=== PATIENT | female | born 1970 | race Two or more races ===

== ENCOUNTER 2022-10-28 09:20 | Outpatient (REF) | payer MEDICAID, SELFPAY ==
--- NOTE | ~2022-10-28 | MM_ITS ---
EXAMINATION: MM SCREENING DIGITAL BREAST TOMOSYNTHESIS, BILATERAL CLINICAL INFORMATION: Screening. Asymptomatic. Prior outside mammography from [place] currently unavailable. The lifetime risk of breast cancer based on the Tyrer-Cuzick Model is 11%. COMPARISON: None. TECHNIQUE: Digital breast tomosynthesis is performed in both the craniocaudal and mediolateral oblique views along with computer-aided detection (CAD). Synthesized 2D images are generated from the tomosynthesis. Additional bilateral MLO views are provided. FINDINGS: The breasts are almost entirely fatty (ACR BI-RADS breast composition Category a). There are no significant masses, abnormal calcifications, or other abnormalities. No architectural abnormality. There are scattered benign bilateral round and rim calcifications. The axilla and skin contours are unremarkable. MM/MM tomosynthesis screening BI IMPRESSION: No mammographic evidence of malignancy. ASSESSMENT: BI-RADS 1: Negative RECOMMENDATION: Routine annual mammography screening. This patient's information was entered into a reminder system with a target due date for their next mammogram.
== END 2022-10-28 09:21 | disposition home or self-care (01) ==
LOC: HO.MAMMO 09:20
PROVIDERS: Visit Provider General Practice
DX: Z12.31 Encounter for screening mammogram for malignant neoplasm of breast (principal)
CPT/HCPCS: 77063; 77067

== ENCOUNTER 2023-07-03 10:50 | Outpatient (REF) | payer MEDICAID, SELFPAY ==
[2023-07-03 13:14] LABS: MANUAL DIFF FLAG NO
[2023-07-03 13:18] LABS: Appearance Urine Cloudy; Color Urine Yellow; Glucose Urine UA Negative (Negative); Leukocyte Esterase Urine Small (1+) (Negative); Nitrite Urine Positive (Negative); PH 7.5 (5.0-9.0); Specific Gravity - Urine 1.015 (1.005-1.025); UMIC TRIGGER UA YES; Urine Blood Negative (Negative); Urine Ketones Negative (Negative); Urine Protein Negative (Neg-Trace)
[2023-07-03 13:25] LABS: Bacteria Urine 4+ (None Seen); Hyaline Casts Urine 0-2 /LPF (0-2)
[2023-07-03 13:31] LABS: Basophils Percent Auto 0.7 % (0-2); Eosinophils Absolute Auto 0.1 X10*3/uL (0.0-0.4); Eosinophils Percent Auto 1.1 % (0-4); Hematocrit 37.3 % (37.0-47.0); Hemoglobin 12.5 g/dl (12.0-16.0); Imm Gran Abs Auto 0.02 X10*3/uL (0.00-0.03); Imm Gran Pct Auto 0.3 % (0.0-0.4); Lymphocytes Absolute Auto 2.1 X10*3/uL (1.2-4.9); Lymphocytes Percent Auto 34.5 % (20-40); Mean Corpuscular HGB Conc 33.5 g/dl (31.0-35.0); Mean Corpuscular Hemoglobin 32.3 pg (27.0-33.0); Mean Corpuscular Volume 96.4 fL (80.0-98.0); Mean Platelet Volume 9.8 fL (9.4-12.3); Monocytes Absolute Auto 0.5 X10*3/uL (0.1-1.2); Monocytes Percent Auto 8.1 % (2-11); Neutrophils Absolute Auto 3.4 x10*3/uL (2.0-8.3); Neutrophils Percent Auto 55.3 % (45-73); Platelet Count 259 X10*3/uL (160-400); Red Blood Count 3.87 X10*6/uL (4.20-5.50); Red Cell Distribution Width 13.1 % (11.0-16.0); White Blood Count 6.1 X10*3/uL (4.8-10.8)
[2023-07-03 14:55] LABS: Alanine Aminotransferase 26 U/L (0-31); Albumin Level 4.2 g/dL (3.5-5.0); Alkaline Phosphatase 63 U/L (39-117); Anion Gap 16 (12-20); Aspartate Amino Transferase 27 U/L (5-31); Bilirubin Total 0.6 mg/dL (0.0-1.0); Blood Urea Nitrogen 7 mg/dL (9-16); Calcium 9.4 mg/dL (8.4-10.2); Carbon Dioxide 24 mmol/L (22-29); Chloride 104 mmol/L (96-108); Cholesterol 149 mg/dL; Estimated Glomerular Filt Rate > 60; Glucose Random 124 mg/dL (60-115); HDL Cholesterol 39 mg/dL; LDL Cholesterol Calculated 62 mg/dl; Potassium 3.3 mmol/L (3.3-5.1); Sodium 141 mmol/L (135-145); Total Protein 7.7 g/dL (6.5-8.0); Triglycerides 244 mg/dL
[2023-07-04 04:05] LABS: Syphilis Screen Nonreactive (Nonreactive)
[2023-07-06 10:29] LABS: Absolute CD3 Count 1572 cells/uL (840-3060); Absolute CD4 Count 869 cells/uL (490-1740); Absolute CD8 Count 840 cells/uL (180-1170); Absolute Lymphocytes 2119 cells/uL (850-3900); CD4 CD8 Ratio 1.04 (0.86-5.00); Percent CD3 Cells 74 % (57-85); Percent CD4 Cells 41 % (30-61); Percent CD8 Cells 40 % (12-42)
[2023-07-06 16:19] LABS: TS Negative Control Passed; TS Panel A 2; TS Panel B 0; TS Positive Control Passed; TSpotTB Negative (Negative)
[2023-07-07 20:13] LABS: HIV RNA PCR Qn Copies 117 copies/mL (NOT DETECTED); HIV RNA PCR Qn Log Copies 2.07 (NOT DETECTED)
== END 2023-07-03 10:51 | disposition home or self-care (01) ==
LOC: HO.HHCL 10:50
PROVIDERS: Visit Provider Internal Medicine
DX: B20 Human immunodeficiency virus [HIV] disease (principal)
CPT/HCPCS: 36415; 80053; 80061; 81001; 85025; 86359; 86360; 86481; 86780; 87536

== ENCOUNTER 2023-08-17 16:31 | Outpatient (REF) | payer MEDICAID, SELFPAY | END 2023-08-17 16:32 | disposition home or self-care (01) | LOC: HO.HHCLNP 16:31 | PROVIDERS: Visit Provider General Practice | DX: F41.9 Anxiety disorder, unspecified (principal) | CPT/HCPCS: 80307 ==

== ENCOUNTER 2023-10-01 17:42 | Outpatient (REF) | payer MEDICAID, SELFPAY ==
[2023-10-05 12:47] LABS: Fentanyl, Ur NEGATIVE; Norfentanyl, Ur NEGATIVE
[2023-10-06 08:58] LABS: Aminoclonazepam, GCMS Urine 119 (H)
[2023-10-06 09:02] LABS: Codeine, Ur NEGATIVE; Hydrocodone, Ur NEGATIVE; Hydromorphone, Ur NEGATIVE; Morphine, Ur NEGATIVE
[2023-10-06 09:03] LABS: Alphahydroxymidazolam,GCMS Ur NEGATIVE; Alphahydroxytriazolam, GCMS Ur NEGATIVE; Alprazolam, GCMS Urine NEGATIVE; Flurazepam Metabolite,GCMS Ur NEGATIVE; Lorazepam GCMS Urine NEGATIVE; Nordiazepam, GCMS Urine NEGATIVE; Norhydrocodone, Ur NEGATIVE; Oxazepam, GCMS Urine NEGATIVE; Oxymorphone, Ur NEGATIVE; Temazepam, GCMS Urine NEGATIVE
== END 2023-10-01 17:43 | disposition home or self-care (01) ==
LOC: HO.HHCLNP 17:42
PROVIDERS: Visit Provider General Practice
DX: R10.9 Unspecified abdominal pain (principal); G89.29 Other chronic pain
CPT/HCPCS: 80346; 80354; 80365; G0480

== ENCOUNTER 2023-10-09 12:29 | Outpatient (REF) | payer MEDICAID, SELFPAY ==
[2023-10-14 09:03] LABS: HIV RNA PCR Qn Copies NOT DETECTED copies/mL (NOT DETECTED); HIV RNA PCR Qn Log Copies NOT DETECTED (NOT DETECTED)
[2023-10-18 12:38] LABS: HIV 1 Integrase Proviral DNA DETECTED; HIV 1 PR RT Proviral DNA DETECTED
== END 2023-10-09 12:30 | disposition home or self-care (01) ==
LOC: HO.HHCL 12:29
PROVIDERS: Visit Provider Internal Medicine
DX: B20 Human immunodeficiency virus [HIV] disease (principal)
CPT/HCPCS: 36415; 87536; 87900; 87901; 87906

== ENCOUNTER 2024-02-02 11:44 | Outpatient (REF) | payer MEDICAID, SELFPAY ==
[2024-02-09 11:01] LABS: Alphahydroxymidazolam,GCMS Ur NEGATIVE; Alphahydroxytriazolam, GCMS Ur NEGATIVE; Alprazolam, GCMS Urine NEGATIVE; Flurazepam Metabolite,GCMS Ur NEGATIVE; Lorazepam GCMS Urine NEGATIVE; Nordiazepam, GCMS Urine NEGATIVE; Oxazepam, GCMS Urine NEGATIVE; Temazepam, GCMS Urine NEGATIVE
[2024-02-09 11:03] LABS: Fentanyl, Ur NEGATIVE; Norfentanyl, Ur NEGATIVE
== END 2024-02-02 11:45 | disposition home or self-care (01) ==
LOC: HO.LNP 11:44
PROVIDERS: Visit Provider General Practice
DX: R10.9 Unspecified abdominal pain (principal); G89.29 Other chronic pain
CPT/HCPCS: 80346; 80354

== ENCOUNTER 2024-02-04 11:21 | Outpatient (REF) | payer MEDICAID, SELFPAY | END 2024-02-04 11:22 | disposition home or self-care (01) | LOC: HO.SH 11:21 | PROVIDERS: Visit Provider General Practice | DX: Z01.118 Encounter for examination of ears and hearing with other abnormal findings (principal); H90.3 Sensorineural hearing loss, bilateral | CPT/HCPCS: 92557; 92567 ==

== ENCOUNTER 2024-03-30 16:48 | Outpatient (REF) | payer MEDICAID, SELFPAY ==
[2024-04-04 08:18] LABS: Fentanyl, Ur NEGATIVE; Norfentanyl, Ur NEGATIVE
[2024-04-04 08:20] LABS: Alphahydroxymidazolam,GCMS Ur NEGATIVE; Alphahydroxytriazolam, GCMS Ur NEGATIVE; Alprazolam, GCMS Urine NEGATIVE; Lorazepam GCMS Urine NEGATIVE; Nordiazepam, GCMS Urine NEGATIVE; Oxazepam, GCMS Urine NEGATIVE; Temazepam, GCMS Urine NEGATIVE
[2024-04-04 08:21] LABS: Flurazepam Metabolite,GCMS Ur NEGATIVE
== END 2024-03-30 16:49 | disposition home or self-care (01) ==
LOC: HO.HHCLNP 16:48
PROVIDERS: Visit Provider General Practice
DX: R10.9 Unspecified abdominal pain (principal); G89.29 Other chronic pain
CPT/HCPCS: 80346; 80354

== ENCOUNTER 2024-05-26 16:45 | Outpatient (REF) | payer MEDICAID, SELFPAY | END 2024-05-26 16:46 | disposition home or self-care (01) | LOC: HO.HHCLNP 16:45 | PROVIDERS: Visit Provider General Practice | DX: R10.9 Unspecified abdominal pain (principal); G89.29 Other chronic pain | CPT/HCPCS: 36415; 80307 ==

== ENCOUNTER 2024-06-16 10:07 | Outpatient (REF) | payer MEDICAID, SELFPAY ==
[2024-06-16 11:20] LABS: MANUAL DIFF FLAG NO
[2024-06-16 11:25] LABS: Appearance Urine Cloudy; Color Urine Yellow; Glucose Urine UA Negative (Negative); Leukocyte Esterase Urine Moderate (2+) (Negative); Nitrite Urine Positive (Negative); Specific Gravity - Urine 1.015 (1.005-1.025); UMIC TRIGGER UACC YES; Urine Blood Negative (Negative); Urine Ketones Negative (Negative); Urine Protein Negative (Neg-Trace)
[2024-06-16 11:30] LABS: Basophils Percent Auto 0.8 % (0-2); Eosinophils Absolute Auto 0.2 X10*3/uL (0.0-0.4); Eosinophils Percent Auto 3.2 % (0-4); Hematocrit 35.4 % (37.0-47.0); Hemoglobin 12.1 g/dl (12.0-16.0); Imm Gran Abs Auto 0.02 X10*3/uL (0.00-0.03); Imm Gran Pct Auto 0.4 % (0.0-0.4); Lymphocytes Absolute Auto 1.9 X10*3/uL (1.2-4.9); Lymphocytes Percent Auto 35.7 % (20-40); Mean Corpuscular HGB Conc 34.2 g/dl (31.0-35.0); Mean Corpuscular Hemoglobin 32.7 pg (27.0-33.0); Mean Corpuscular Volume 95.7 fL (80.0-98.0); Monocytes Absolute Auto 0.5 X10*3/uL (0.1-1.2); Monocytes Percent Auto 9.3 % (2-11); Neutrophils Absolute Auto 2.7 x10*3/uL (2.0-8.3); Neutrophils Percent Auto 50.6 % (45-73); Platelet Count 281 X10*3/uL (160-400); Red Cell Distribution Width 12.9 % (11.0-16.0); White Blood Count 5.3 X10*3/uL (4.8-10.8)
[2024-06-16 11:38] LABS: Bacteria Urine 4+ (None Seen); Hyaline Casts Urine 0-2 /LPF (0-2); RBC Urine 0-2 /HPF (0-2); UACC Culture Trigger YES
[2024-06-16 12:00] LABS: Alanine Aminotransferase 21 U/L (0-31); Albumin Level 4.2 g/dL (3.5-5.0); Alkaline Phosphatase 62 U/L (39-117); Anion Gap 16 (12-20); Aspartate Amino Transferase 32 U/L (5-31); Bilirubin Total 0.4 mg/dL (0.0-1.0); Blood Urea Nitrogen 7 mg/dL (9-16); Calcium 9.3 mg/dL (8.4-10.2); Carbon Dioxide 24 mmol/L (22-29); Chloride 105 mmol/L (96-108); Cholesterol 159 mg/dL (<200); Estimated Glomerular Filt Rate > 60; Glucose Random 120 mg/dL (60-115); HDL Cholesterol 35 mg/dL (>40); LDL Cholesterol Calculated 66 mg/dL (<100); Potassium 3.3 mmol/L (3.3-5.1); Sodium 142 mmol/L (135-145); Triglycerides 290 mg/dL (<150)
[2024-06-16 12:08] LABS: Reflex LDLD? No
[2024-06-16 12:21] LABS: Syphilis Screen Nonreactive (Nonreactive); ~HepC Num1 0.22 S/CO (0.00-0.79); ~Hepatitis C Antibody Nonreactive (Nonreactive)
[2024-06-19 03:04] LABS: TS Negative Control Passed; TS Panel A 0; TS Panel B 0; TS Positive Control Passed; TSpotTB Negative (Negative)
[2024-06-20 13:38] LABS: HIV RNA PCR Qn Copies 26 copies/mL (NOT DETECTED); HIV RNA PCR Qn Log Copies 1.41 (NOT DETECTED)
[2024-06-20 19:47] LABS: Absolute CD3 Count 1522 cells/uL (840-3060); Absolute CD4 Count 902 cells/uL (490-1740); Absolute CD8 Count 726 cells/uL (180-1170); Absolute Lymphocytes 1911 cells/uL (850-3900); CD4 CD8 Ratio 1.24 (0.86-5.00); Percent CD3 Cells 80 % (57-85); Percent CD4 Cells 47 % (30-61); Percent CD8 Cells 38 % (12-42)
== END 2024-06-16 10:08 | disposition home or self-care (01) ==
LOC: HO.HHCL 10:07
PROVIDERS: Visit Provider Internal Medicine
DX: B20 Human immunodeficiency virus [HIV] disease (principal)
CPT/HCPCS: 36415; 80053; 80061; 81001; 85025; 86359; 86360; 86481; 86780; 86803; 87086; 87088; 87186; 87536

== ENCOUNTER 2024-07-20 17:15 | Outpatient (REF) | payer MEDICAID, SELFPAY ==
[2024-07-25 11:08] LABS: Fentanyl, Ur NEGATIVE; Norfentanyl, Ur NEGATIVE
== END 2024-07-20 17:16 | disposition home or self-care (01) ==
LOC: HO.HHCLNP 17:15
PROVIDERS: Visit Provider General Practice
DX: R10.9 Unspecified abdominal pain (principal); G89.29 Other chronic pain
CPT/HCPCS: 80354

== ENCOUNTER 2024-09-13 16:46 | Outpatient (REF) | payer MEDICAID, SELFPAY ==
[2024-09-15 12:35] LABS: Fentanyl, Ur NEGATIVE; Norfentanyl, Ur NEGATIVE
== END 2024-09-13 16:47 | disposition home or self-care (01) ==
LOC: HO.HHCLNP 16:46
PROVIDERS: Visit Provider General Practice
DX: R10.9 Unspecified abdominal pain (principal); G89.29 Other chronic pain
CPT/HCPCS: 80354

== ENCOUNTER 2024-12-02 16:21 | Outpatient (REF) | payer MEDICAID, SELFPAY ==
[2024-12-05 10:38] LABS: HPV 16,18/45 See PAP report
== END 2024-12-02 16:22 | disposition home or self-care (01) ==
LOC: HO.LNP 16:21
PROVIDERS: Visit Provider General Practice
DX: Z13.89 Encounter for screening for other disorder (principal)
CPT/HCPCS: 87626; 88175

== ENCOUNTER 2024-12-29 11:20 | Outpatient (REF) | payer MEDICAID, SELFPAY ==
[2024-12-29 12:59] LABS: MANUAL DIFF FLAG NO
[2024-12-29 13:08] LABS: Basophils Percent Auto 0.4 % (0-2); Eosinophils Absolute Auto 0.1 X10*3/uL (0.0-0.4); Eosinophils Percent Auto 1.5 % (0-4); Hematocrit 36.7 % (37.0-47.0); Hemoglobin 12.1 g/dl (12.0-16.0); Imm Gran Abs Auto 0.02 X10*3/uL (0.00-0.03); Imm Gran Pct Auto 0.3 % (0.0-0.4); Lymphocytes Absolute Auto 3.2 X10*3/uL (1.2-4.9); Lymphocytes Percent Auto 41.9 % (20-40); Mean Corpuscular Hemoglobin 32.6 pg (27.0-33.0); Mean Corpuscular Volume 98.9 fL (80.0-98.0); Mean Platelet Volume 9.8 fL (9.4-12.3); Monocytes Absolute Auto 0.6 X10*3/uL (0.1-1.2); Monocytes Percent Auto 8.5 % (2-11); Neutrophils Absolute Auto 3.6 x10*3/uL (2.0-8.3); Neutrophils Percent Auto 47.4 % (45-73); Platelet Count 254 X10*3/uL (160-400); Red Blood Count 3.71 X10*6/uL (4.20-5.50); Red Cell Distribution Width 12.8 % (11.0-16.0); White Blood Count 7.6 X10*3/uL (4.8-10.8)
[2024-12-29 13:17] LABS: Appearance Urine Cloudy; Color Urine Dark Yellow; Glucose Urine UA Negative (Negative); Leukocyte Esterase Urine Moderate (2+) (Negative); Nitrite Urine Negative (Negative); PH 5.5 (5.0-9.0); Specific Gravity - Urine 1.025 (1.005-1.025); UMIC TRIGGER UACC YES; Urine Blood Negative (Negative); Urine Ketones Negative (Negative); Urine Protein Negative (Neg-Trace)
[2024-12-29 13:41] LABS: Bacteria Urine 4+ (None Seen); Hyaline Casts Urine 0-2 /LPF (0-2); RBC Urine 0-2 /HPF (0-2); UACC Culture Trigger YES
[2024-12-29 13:55] LABS: Alanine Aminotransferase 24 U/L (0-31); Albumin Level 4.3 g/dL (3.5-5.0); Alkaline Phosphatase 55 U/L (39-117); Anion Gap 14 (12-20); Aspartate Amino Transferase 26 U/L (5-31); Bilirubin Total 0.4 mg/dL (0.0-1.0); Blood Urea Nitrogen 13 mg/dL (9-16); Carbon Dioxide 23 mmol/L (22-29); Chloride 105 mmol/L (96-108); Estimated Glomerular Filt Rate > 60; Glucose Random 143 mg/dL (60-115); Potassium 3.3 mmol/L (3.3-5.1); Sodium 139 mmol/L (135-145); Total Protein 7.8 g/dL (6.5-8.0)
[2024-12-29 14:13] LABS: HBS Num1 25.25 mIU/mL (0-7.99); HBc Num1 0.11 S/CO (0.00-0.79); HBsAGNum1 0.37 S/CO (0.00-0.99); Hepatitis A Antibody IgG REACTIVE (Nonreactive); Hepatitis B Core Antibody Nonreactive (Nonreactive); Hepatitis B Surface Antigen Negative (Negative); ~Hepatitis B Surface Antibody REACTIVE (Nonreactive)
[2024-12-30 05:21] LABS: CT PCR NOT DETECTED (Not Detect.); NG PCR NOT DETECTED (Not Detect.)
[2024-12-31 15:13] LABS: HIV RNA PCR Qn Copies <20 DETECTED copies/mL (NOT DETECTED); HIV RNA PCR Qn Log Copies <1.30 DETECTED (NOT DETECTED)
[2025-01-05 16:04] LABS: Absolute CD3 Count 2291 cells/uL (840-3060); Absolute CD4 Count 1204 cells/uL (490-1740); Absolute CD8 Count 1287 cells/uL (180-1170); Absolute Lymphocytes 3032 cells/uL (850-3900); CD4 CD8 Ratio 0.94 (0.86-5.00); Percent CD3 Cells 76 % (57-85); Percent CD4 Cells 40 % (30-61); Percent CD8 Cells 42 % (12-42)
== END 2024-12-29 11:21 | disposition home or self-care (01) ==
LOC: HO.HHCL 11:20
PROVIDERS: Internal Medicine; Visit Provider General Practice
DX: Z21 Asymptomatic human immunodeficiency virus [HIV] infection status (principal)
CPT/HCPCS: 80053; 81001; 85025; 86359; 86360; 86704; 86706; 86708; 87086; 87088; 87186; 87340; 87491; 87536; 87591

== ENCOUNTER 2025-01-12 12:57 | Outpatient (REF) | payer MEDICAID, SELFPAY ==
[2025-01-23 10:48] LABS: HPV MRNA E6/E7 Rectal NOT DETECTED
== END 2025-01-12 12:58 | disposition home or self-care (01) ==
LOC: HO.HHCLNP 12:57
PROVIDERS: Visit Provider Internal Medicine
DX: Z21 Asymptomatic human immunodeficiency virus [HIV] infection status (principal)
CPT/HCPCS: 36415; 87624; 88112

== ENCOUNTER 2025-01-13 09:05 | Outpatient (REF) | payer MEDICAID, SELFPAY ==
--- NOTE | ~2025-01-13 | MM_ITS ---
EXAMINATION: DXA BONE DENSITY AXIAL HISTORY: Estrogen deficiency TECHNIQUE: [employer] Dual energy absorptiometry (DEXA) of the lumbar spine, total left hip, and femoral neck was performed. COMPARISON: There are no prior studies for comparison. FINDINGS: The bone mineral density of the lumbar spine is 1.260 with a T-score of 0.7, and a Z-score of 0.3. The bone mineral density of the left total hip is 1.071 with a T-score of 0.5, and a Z-score of 0.3. The bone mineral density of the left femoral neck is 0.959 with a T-score of -0.6, and a Z-score of -0.3. FRACTURE RISK: The FRAX index suggests a risk of major osteoporotic fracture of 2.5%, and of hip fracture 0.1%. MM/XR DEXA axial skeleton IMPRESSION: Based on bone mineral density, and according to World Health Organization (WHO) criteria, the diagnosis is consistent with normal bone mineral density. All bone density values are in grams per centimeter squared (g/cm2). Statistically, 68% of repeat scans fall within 1 SD (+/- 0.010 g/cm2 for AP spine L1-L4) and 1 SD (+/- 0.012 g/cm2 for femur total) FRAX is a trademark of the [employer] [place] for Metabolic Bone Disease, a World Health Organization (WHO) Collaborating Center. Electronically signed by: Petey Alcantara MD 01/13/2025 01:01 PM XAVIER
== END 2025-01-13 09:06 | disposition home or self-care (01) ==
LOC: HO.MAMMO 09:05
PROVIDERS: PCP General Practice; Visit Provider General Practice
DX: Z12.31 Encounter for screening mammogram for malignant neoplasm of breast (principal); Z13.820 Encounter for screening for osteoporosis; M89.9 Disorder of bone, unspecified; E28.39 Other primary ovarian failure
CPT/HCPCS: 77063; 77067; 77080

== ENCOUNTER → 2025-01-13 11:00 | Outpatient (BNV) | payer MEDICAID, SELFPAY | PROVIDERS: PCP General Practice; Visit Provider Radiology Diagnostic Radiology | DX: Z12.31 Encounter for screening mammogram for malignant neoplasm of breast (principal) | CPT/HCPCS: 77063; 77067 ==

== ENCOUNTER 2025-07-20 18:17 | Outpatient (REF) | payer MEDICAID, SELFPAY ==
[2025-07-25 08:16] LABS: Lorazepam GCMS Urine NEGATIVE; Nordiazepam, GCMS Urine NEGATIVE; Oxazepam, GCMS Urine NEGATIVE
[2025-07-25 08:17] LABS: Alphahydroxytriazolam, GCMS Ur NEGATIVE; Alprazolam, GCMS Urine NEGATIVE
[2025-07-25 08:18] LABS: Alphahydroxymidazolam,GCMS Ur NEGATIVE; Aminoclonazepam, GCMS Urine 168; Flurazepam Metabolite,GCMS Ur NEGATIVE; Temazepam, GCMS Urine NEGATIVE
== END 2025-07-20 18:18 | disposition home or self-care (01) ==
LOC: HO.HHCLNP 18:17
PROVIDERS: Visit Provider General Practice
DX: Z79.899 Other long term (current) drug therapy (principal)
CPT/HCPCS: 80346

== ENCOUNTER 2025-09-15 10:21 | Outpatient (REF) | payer MEDICAID, SELFPAY ==
--- OUTSIDE RECORDS SUMMARY | 2025-04-08 05:00 | XMS_ITS ---
Author Organization [facility] Address [address] [facility] [address] Care Team Providers Care Global Product Manager Name Role Phone Migration, Provider Unavailable Unavailable REASON FOR VISIT EMR-Trevon Encounters Encounter Location Date Provider Diagnosis [facility] [address] [facility] [address] 04/08/2025 Provider Migration Plan Of Treatment Medication [...] day 02/01/2021 03/28/2021 Lapsed Medication In Intergy. Lctemgnfld-YFLH-Glpuaae e 50-325-40 MG Tablet Oral 01/11/2020 01/11/2020 Progress Notes * Farhana CORONADO NDOB:1 (55 yo F)Acc No.[id number]:04/08/2025 Patient: Lance JIMENEZ Farhana AMEZQUITA :1970 A ge:54 Y S ex:Female Phone: Address:[address] [place], [address] * Refills Stop Intelence Tablet, 200 MG, [...] once a day, once a day Stop Kdifnmxycv-XMLW-Zbdpkemn Tablet, 50-325-40 MG, Oral, 0 Stop Emtriva [...]
--- OUTSIDE RECORDS SUMMARY | 2025-04-09 05:00 | XMS_ITS ---
Author Organization [facility] Address [address] [place] [address] Care Team Providers Care Paper Handler Name Role Phone Migration, Provider Unavailable Unavailable REASON FOR VISIT EMR-Trevon Medications Medication SIG (Take, Route, Frequency, Duration) Notes Start Date End Date Status Losartan Potassium-HCTZ 100-12.5 MG Tablet once a day Oral once a day 03/28/2021 Active Tricor 145 MG Tablet once a day Oral once a day Active Cefadroxil 1 GM Tablet twice a day Oral twice a day 06/20/2020 Active Hzsuqvqdcp-KENS-Nrbdejwk 50-325-40 MG Tablet 1 every 4 - [...] practices Encounters Encounter Location Date Provider [facility] [address] [place] [address] 04/09/2025 Provider Migration Plan Of Treatment No Information Progress Notes * CHRISTA AMEZQUITA Farhana NDOB:1 (55 yo F)Acc No.[id number]:04/09/2025 Patient: Lance BOODOFarhana N :1970 A ge:54 Y S ex:Female Phone: Address[address] [place], [address] Subjective: * Chief Complaints: * E MR-Trevon [...] a day Oral three times a day Krcdfvrptc-HJCU-Nwwahfhd 50-325-40 MG Tablet 1 every 4 - [...] day Oral three times a day Taking Itkqsgursn-BAHH-Ejwqhuma 50-325-40 MG Tablet 1 every 4 - 6 hours as needed Oral 1 every 4 - 6 hours as needed Taking Neurontin 800 MG Tablet three times a day Oral three times a day * * Date:
[2025-09-15 11:51] LABS: Hemoglobin 10.4 g/dl (12.0-16.0); Imm Gran Abs Auto 0.01 X10*3/uL (0.00-0.03); Imm Gran Pct Auto 0.2 % (0.0-0.4); MANUAL DIFF FLAG SCAN; PLT CLUMP 1; SCAN SMEAR FLAG 1
[2025-09-15 11:53] LABS: Hematocrit 31.9 % (37.0-47.0); Lymphocytes Absolute Auto 1.8 X10*3/uL (1.2-4.9); Mean Corpuscular HGB Conc 32.6 g/dl (31.0-35.0); Mean Corpuscular Hemoglobin 28.6 pg (27.0-33.0); Mean Corpuscular Volume 87.6 fL (80.0-98.0); NRBC Abs Auto 0.020 X10*3/uL (0.0-0.012); NRBC Pct Auto 0.4 /100WBC (0.0-0.2); Red Blood Count 3.64 X10*6/uL (4.20-5.50)
--- OUTSIDE RECORDS SUMMARY | 2025-09-15 12:19 | XMS_ITS | Patient Health Record ---
Author Organization [facility] a Address [address] [place] [address] Care Team Providers Care Operations Support Professionals Name Role Phone Migration, Provider Unavailable Unavailable Reason For Referral No Information Medications Medication SIG (Take, Route, Frequency, Duration) Notes Start Date End Date Status Losartan Potassium-HCTZ 100-12.5 MG Tablet once a day Oral once a day 03/28/2021 Active Prezista 600 MG Tablet twice a day Oral twice a day 03/28/2021 Active Famotidine 40 MG Tablet once a day Oral once a day 03/28/2021 Active Tricor 145 MG Tablet once a day Oral once a day Active Cefadroxil 1 GM Tablet twice a day Oral twice a day 06/20/2020 Active Percocet 5-325 MG Tablet three times a d ay Oral three times a day 12/06/2020 Active Isentress 400 MG Tablet twice a day Oral twice a day 03/28/2021 Active Emtriva 200 MG Capsule once a day Oral once a day 03/28/2021 Active Metoprolol Tartrate 100 MG Tablet twice a day Oral twice a day 03/28/2021 Active Neurontin 800 MG Tablet three times a da y Oral three times a day 03/28/2021 Active Qheaouxjox-DLGX-Dfjjowok 50-325-40 MG Tablet 1 every 4 - 6 hours as needed Oral 1 every 4 - 6 hours as needed 01/11/2020 Active Norvir 100 MG Tablet twice a day Oral tw ice a day 03/28/2021 Active Bactrim DS 800-160 MG Tablet twice a day Oral twice a day 01/17/2020 Active Intelence 200 MG Tablet twice a day Oral twice a day 03/28/2021 Active Immunizations Vaccine Route Administration Date Status Comme nts Hep B, unspecified formulation Unknown 05/21/2017 Admin istered Hep B, unspecified formulation Unknown 06/18/2017 Admin istered Hep B, unspecified formulation Unknown 07/28/2017 Admin istered Influenza (split), 3 yrs and above Unknown 09/14/2019 A dministered Pneumococcal polysaccharide PPV23 Unknown 07/01/2014 Ad ministered Pneumococcal polysaccharide PPV23 Unknown 07/01/2016 Ad ministered TB Skin Test Unknown 07/11/2019 Administered Td (adult), adsorbed Unknown 09/12/2016 Administered Social History Social History Additional Details Category Social Info Options Details Migrated Social History Migrated Social History not sexually active, Oriented about HIV disclosure, Oriented about risk reduction, Oriented about safe sex practices Problems Problem Type SNOMED Code ICD Code Onset Dates Problem Status W/U Status Risk Notes Problem Benign neoplasm of uterus (49671587) Other benign neoplasm of uterus, unspecified (D26.9) Active confirmed Problem Mixed hyperlipidemia (474135219) Mixed hyperlipidemia (E78.2) Active confirmed Problem Chronic pain syndrome (878719468) Chronic pain syndrome (G89.4) Active confirmed Problem Essential hypertension (92870583) Essential (primary) hypertension (I10) Active confirmed Problem Calculus of kidney (74913469) Calculus of kidney (N20.0) Active confirmed Problem Asymptomatic human immunodeficiency virus infection (52210174) Asymptomatic human immunodeficiency virus [HIV] infection status (Z21) Active confirmed Problem Other specified procedure converted to open procedure (Z53.39) Active confirmed Encounters Encounter Location Date Provider Diagnosis [facility] [address] [place] [address] 04/08/2025 Provider [facility] [address] [place] [address] 04/09/2025 Provider Migration Plan Of Treatment No Information Insurance Providers Payer Name Payer Address Payer Phone Subscriber Number Group Number Insured Name Patient Relationship to Insured Coverage Start Date Coverage End Date [employer] [address] [place] [address] [id number] Farhana Coronado Self - patient is the insured 9 No Insurance [address] [place] [address] [id number] Farhana Coronado Self - patient is the insured 7
[2025-09-15 12:33] LABS: Platelet Count 235 X10*3/uL (160-400); White Blood Count 4.9 X10*3/uL (4.8-10.8)
[2025-09-15 16:09] LABS: Alanine Aminotransferase 25 U/L (0-31); Albumin Level 4.3 g/dL (3.5-5.0); Alkaline Phosphatase 78 U/L (39-117); Anion Gap 16 (12-20); Aspartate Amino Transferase 41 U/L (5-31); Blood Urea Nitrogen 9 mg/dL (9-16); Calcium 8.9 mg/dL (8.4-10.2); Carbon Dioxide 22 mmol/L (22-29); Chloride 106 mmol/L (96-108); Cholesterol 172 mg/dL (<200); Estimated Glomerular Filt Rate > 60; HDL Cholesterol 35 mg/dL (>40); Potassium 3.2 mmol/L (3.3-5.1); Sodium 141 mmol/L (135-145); Total Protein 7.5 g/dL (6.5-8.0); Triglycerides 331 mg/dL (<150)
[2025-09-15 18:20] LABS: Reflex LDLD? No
[2025-09-16 09:18] LABS: Syphilis Screen Nonreactive (Nonreactive)
[2025-09-16 10:29] LABS: ~HepC Num1 0.20 S/CO (0.00-0.79); ~Hepatitis C Antibody Nonreactive (Nonreactive)
[2025-09-16 14:14] LABS: HIV RNA PCR Qn Copies NOT DETECTED copies/mL (NOT DETECTED); HIV RNA PCR Qn Log Copies NOT DETECTED (NOT DETECTED)
[2025-09-18 10:28] LABS: TS Negative Control Passed; TS Panel A 1; TS Panel B 0; TS Positive Control Passed; TSpotTB Negative (Negative)
[2025-09-21 15:03] LABS: Absolute CD3 Count 1403 cells/uL (840-3060); Absolute CD8 Count 675 cells/uL (180-1170); Percent CD3 Cells 80 % (57-85); Percent CD8 Cells 38 % (12-42)
== END 2025-09-15 10:22 | disposition home or self-care (01) ==
LOC: HO.HHCL 10:21
PROVIDERS: PCP General Practice; Visit Provider Internal Medicine
DX: E66.9 Obesity, unspecified (principal); Z21 Asymptomatic human immunodeficiency virus [HIV] infection status; Z11.1 Encounter for screening for respiratory tuberculosis; Z11.59 Encounter for screening for other viral diseases; Z11.3 Encounter for screening for infections with a predominantly sexual mode of transmission
CPT/HCPCS: 36415; 80053; 80061; 83036; 85025; 86359; 86360; 86481; 86780; 86803; 87536

== ENCOUNTER 2025-09-19 11:46 | Outpatient (REF) | payer MEDICAID, SELFPAY ==
--- OUTSIDE RECORDS SUMMARY | 2025-04-08 05:00 | XMS_ITS ---
Author Organization [facility] Address [address] [facility] [address] Care Team Providers Care Clinical Programmer Name Role Phone Migration, Provider Unavailable Unavailable REASON FOR VISIT EMR-Trevon Encounters Encounter Location Date Provider Diagnosis [facility] [address] [place] [address] 04/08/2025 Provider Migration Plan Of Treatment Medication [...] day 02/01/2021 03/28/2021 Lapsed Medication In Intergy. Ytifkreesi-BHPU-Rlkgsic e 50-325-40 MG Tablet Oral 01/11/2020 01/11/2020 Progress Notes * Farhana CORONADO NDOB:1 (55 yo F)Acc No.[id number]:04/08/2025 Patient: Lance JIMENEZ Farhana AMEZQUITA :1970 A ge:54 Y S ex:Female Phone: Address:[address] [place], [address] * Refills Stop Intelence Tablet, 200 MG, [...] once a day, once a day Stop Jhztxdcbst-JITM-Fccxjrqb Tablet, 50-325-40 MG, Oral, 0 Stop Emtriva [...]
--- NOTE | ~2025-09-19 | XR_ITS ---
EXAMINATION: XR HIP, LEFT CLINICAL INFORMATION: L hip pain, limited ROM COMPARISON: None available. TECHNIQUE: AP and oblique views of the left hip. FINDINGS: No acute cortical disruption or malalignment. Asymmetric joint space narrowing with sclerosis along the articular surface of the acetabulum. No lytic or blastic lesions. Stable overlapping the symphysis pubis. XR/XR hip LT min 2V IMPRESSION: Mild osteoarthrosis/osteoarthritis, left hip without acute fracture or dislocation. Electronically signed by: Mukund Florence MD 09/19/2025 01:43 PM EDT
--- OUTSIDE RECORDS SUMMARY | 2025-09-19 15:13 | XMS_ITS | Patient Health Record ---
Author Organization [facility] a Address [address] [place] [address] Care Team Providers Care Cereal Maker Name Role Phone Migration, Provider Unavailable Unavailable [...] Oral three times a day 03/28/2021 Active Koztddjvas-SOKQ-Wirsenuz 50-325-40 MG Tablet 1 every 4 - [...] Risk Notes Problem Benign neoplasm of uterus (72759018) Other benign neoplasm of uterus, unspecified (D26.9) Active confirmed Problem Mixed hyperlipidemia (227778528) Mixed hyperlipidemia (E78.2) Active confirmed Problem Chronic pain syndrome (852448530) Chronic pain syndrome (G89.4) Active confirmed Problem Essential hypertension (97510257) Essential (primary) hypertension (I10) Active confirmed Problem Calculus of kidney (19491037) Calculus of kidney (N20.0) Active confirmed Problem Asymptomatic human immunodeficiency virus infection (06709959) Asymptomatic human immunodeficiency virus [HIV] infection status (Z21) Active confirmed Problem Other specified procedure converted to open procedure (Z53.39) Active confirmed Encounters Encounter Location Date Provider Diagnosis [facility] [address] [facility] [place] [address] 04/08/2025 [facility] [address] [facility] [place] [address] 04/09/2025 Provider Migration Plan Of Treatment No Information Insurance Providers Payer Name Payer Address Payer Phone Subscriber Number Group Number Insured Name Patient Relationship to Insured Coverage Start Date Coverage End Date [employer] [address] [place] [address] [id number] Farhana Coronado Self - patient is the insured 9 No Insurance [address] [place] [address] [id number] Farhana Coronado Self - patient is the insured 7
== END 2025-09-19 11:47 | disposition home or self-care (01) ==
LOC: HO.HHCX 11:46
PROVIDERS: PCP General Practice; Visit Provider General Practice
DX: M25.552 Pain in left hip (principal)
CPT/HCPCS: 73502

== ENCOUNTER → 2025-09-19 12:34 | Outpatient (BNV) | payer MEDICAID, SELFPAY | PROVIDERS: PCP General Practice; Visit Provider Radiology Diagnostic Radiology | DX: M16.12 Unilateral primary osteoarthritis, left hip (principal) | CPT/HCPCS: 73502 ==

== ENCOUNTER 2025-10-12 17:55 | Outpatient (REF) | payer MEDICAID, SELFPAY ==
--- OUTSIDE RECORDS SUMMARY | 2025-04-08 04:00 | XMS_ITS ---
Author Organization [facility] Address [address] [place] [address] Care Team Providers Care Lead Inspector Name Role Phone Migration, Provider Unavailable Unavailable REASON FOR VISIT EMR-Trevon Encounters Encounter Location Date Provider Diagnosis [facility] [address] [place] [address] 04/08/2025 Provider Migration Plan Of Treatment Medication Medication Name Sig Start Date Stop Date Notes Losartan Potassium-HCTZ 100-12.5 MG Tablet once a day Oral once a day 02/01/2021 03/28/2021 Lapsed Medication In Intergy. Isentress 400 MG Tablet twice a day Oral twice a day 02/01/2021 03/28/2021 Lapsed Medication In Intergy. Metoprolol Tartrate 100 MG Tablet twice a day Oral twice a day 02/01/2021 03/28/2021 Lapsed Medication In Intergy. Emtriva 200 MG Capsule once a day Oral once a day 02/01/2021 03/28/2021 Lapsed Medication In Intergy. Losartan Potassium 100 MG Tablet Oral 01/11/2020 01/11/2020 Discontinued. Percocet 5-325 MG Tablet 1 every 6 hours Oral 1 every 6 hours 07/24/2020 11/09/2020 Norvir 100 MG Tablet twice a day Oral twice a day 02/01/2021 03/28/2021 Lapsed Medication In Intergy. Tricor 145 MG Tablet once a day Oral once a day 02/01/2021 03/28/2021 Lapsed Medication In Intergy. Meloxicam 7.5 MG Tablet once a day Oral once a day 12/06/2020 02/01/2021 Famotidine 40 MG Tablet once a day Oral once a day 02/01/2021 03/28/2021 Lapsed Medication In Intergy. Intelence 200 MG Tablet twice a day Oral twice a day 02/01/2021 03/28/2021 Lapsed Medication In Intergy. Neurontin 800 MG Tablet three times a da y Oral three times a day 02/01/2021 03/28/2021 Lapsed Medication In Intergy. Prezista 600 MG Tablet twice a day Oral twice a day 02/01/2021 03/28/2021 Lapsed Medication In Intergy. Msqrgtfkcc-IDCG-Hrvzpri e 50-325-40 MG Tablet Oral 01/11/2020 01/11/2020 Progress Notes * Farhana CORONADO NDOB:1 (55 yo F)Acc No.[id number]:04/08/2025 Patient: Lance JIMENEZ Farhana AMEZQUITA :1970 A ge:54 Y S ex:Female Phone: Address:[address] [place], [address] * Refills Stop Intelence Tablet, 200 MG, Oral, 60, twice a day, twice a day Stop Isentress Tablet, 400 MG, Oral, 60, twice a day, twice a day Stop Metoprolol Tartrate Tablet, 100 MG, Oral, 60, twice a day, twice a day Stop Neurontin Tablet, 800 MG, Oral, 90, three times a day, three times a day Stop Norvir Tablet, 100 MG, Oral, 60, twice a day, twice a day Stop Intelence Tablet, 200 MG, Oral, 60, twice a day, twice a day Stop Intelence Tablet, 200 MG, Oral, 60, twice a day, twice a day Stop Emtriva Capsule, 200 MG, Oral, 30, once a day, once a day Stop Losartan Potassium-HCTZ Tablet, 100-12.5 MG, Oral, 30, once a day, once a day Stop Metoprolol Tartrate Tablet, 100 MG, Oral, 60, twice a day, twice a day Stop Metoprolol Tartrate Tablet, 100 MG, Oral, 60, twice a day, twice a day Stop Prezista Tablet, 600 MG, Oral, 60, twice a day, twice a day Stop Tricor Tablet, 145 MG, Oral, 0 Stop Losartan Potassium-HCTZ Tablet, 100-12.5 MG, Oral, 0 Stop Famotidine Tablet, 40 MG, Oral, 0 Stop Famotidine Tablet, 40 MG, Oral, 30, once a day, once a day Stop Isentress Tablet, 400 MG, Oral, 60, twice a day, twice a day Stop Meloxicam Tablet, 7.5 MG, Oral, 30, once a day, once a day Stop Neurontin Tablet, 800 MG, Oral, 90, three times a day, three times a day Stop Famotidine Tablet, 40 MG, Oral, 30, once a day, once a day Stop Prezista Tablet, 600 MG, Oral, 0, twice a day Stop Tricor Tablet, 145 MG, Oral, 30, once a day, once a day Stop Bwuqzorvct-ATDF-Lezncdmo Tablet, 50-325-40 MG, Oral, 0 Stop Emtriva Capsule, 200 MG, Oral, 30, once a day, once a day Stop Intelence Tablet, 200 MG, Oral, 60, twice a day, twice a day Stop Metoprolol Tartrate Tablet, 100 MG, Oral, 60, twice a day, twice a day Stop Norvir Tablet, 100 MG, Oral, 60, twice a day, twice a day Stop Percocet Tablet, 5-325 MG, Oral, 20, 1 every 6 hours, 1 every 6 hours Stop Tricor Tablet, 145 MG, Oral, 30, once a day, once a day Stop Isentress Tablet, 400 MG, Oral, 0 Stop Losartan Potassium-HCTZ Tablet, 100-12.5 MG, Oral, 30, once a day, once a day Stop Neurontin Tablet, 800 MG, Oral, 0, three times a day Stop Intelence Tablet, 200 MG, Oral, 0 Stop Metoprolol Tartrate Tablet, 100 MG, Oral, 0, twice a day Stop Metoprolol Tartrate Tablet, 100 MG, Oral, 60, twice a day, twice a day Stop Emtriva Capsule, 200 MG, Oral, 30, once a day, once a day Stop Famotidine Tablet, 40 MG, Oral, 30, once a day, once a day Stop Losartan Potassium-HCTZ Tablet, 100-12.5 MG, Oral, 30, once a day, once a day Stop Losartan Potassium-HCTZ Tablet, 100-12.5 MG, Oral, 30, once a day, once a day Stop Tricor Tablet, 145 MG, Oral, 30, once a day, once a day Stop Emtriva Capsule, 200 MG, Oral, 30, once a day, once a day Stop Emtriva Capsule, 200 MG, Oral, 30, once a day, once a day Stop Norvir Tablet, 100 MG, Oral, 60, twice a day, twice a day Stop Norvir Tablet, 100 MG, Oral, 60, twice a day, twice a day Stop Percocet Tablet, 5-325 MG, Oral, 20, 1 every 6 hours, 1 every 6 hours Stop Prezista Tablet, 600 MG, Oral, 60, twice a day, twice a day Stop Prezista Tablet, 600 MG, Oral, 60, twice a day, twice a day Stop Emtriva Capsule, 200 MG, Oral, 0 Stop Intelence Tablet, 200 MG, Oral, 60, twice a day, twice a day Stop Tricor Tablet, 145 MG, Oral, 30, once a day, once a day Stop Tricor Tablet, 145 MG, Oral, 30, once a day, once a day Stop Losartan Potassium Tablet, 100 MG, Oral, 0 Stop Norvir Tablet, 100 MG, Oral, 0 Stop Norvir Tablet, 100 MG, Oral, 60, twice a day, twice a day Stop Prezista Tablet, 600 MG, Oral, 60, twice a day, twice a day Stop Isentress Tablet, 400 MG, Oral, 60, twice a day, twice a day Stop Prezista Tablet, 600 MG, Oral, 60, twice a day, twice a day Stop Famotidine Tablet, 40 MG, Oral, 30, once a day, once a day Stop Famotidine Tablet, 40 MG, Oral, 30, once a day, once a day Stop Losartan Potassium-HCTZ Tablet, 100-12.5 MG, Oral, 30, once a day, once a day Stop Meloxicam Tablet, 7.5 MG, Oral, 30, once a day, once a day Stop Neurontin Tablet, 800 MG, Oral, 90, three times a day, three times a day Stop Isentress Tablet, 400 MG, Oral, 60, twice a day, twice a day Stop Isentress Tablet, 400 MG, Oral, 60, twice a day, twice a day Stop Neurontin Tablet, 800 MG, Oral, 90, three times a day, three times a day Stop Neurontin Tablet, 800 MG, Oral, 90, three times a day, three times a day Subjective: * Chief Complaints: * E -Trevon * * Date:
--- OUTSIDE RECORDS SUMMARY | 2025-04-09 04:00 | XMS_ITS ---
Author Organization [facility] Address [address] [place] [address] Care Team Providers Care Features Editor Name Role Phone Migration, Provider Unavailable Unavailable REASON FOR VISIT EMR-Trevon Medications Medication SIG (Take, Route, Frequency, Duration) Notes Start Date End Date Status Losartan Potassium-HCTZ 100-12.5 MG Tablet once a day Oral once a day 03/28/2021 Active Tricor 145 MG Tablet once a day Oral once a day Active Cefadroxil 1 GM Tablet twice a day Oral twice a day 06/20/2020 Active Sqiszhbsdm-MWGH-Zwcyycpd 50-325-40 MG Tablet 1 every 4 - 6 hours as needed Oral 1 every 4 - 6 hours as needed 01/11/2020 Active Bactrim DS 800-160 MG Tablet twice a day Oral twice a day 01/17/2020 Active Metoprolol Tartrate 100 MG Tablet twice a day Oral twice a day 03/28/2021 Active Norvir 100 MG Tablet twice a day Oral tw ice a day 03/28/2021 Active Isentress 400 MG Tablet twice a day Oral twice a day 03/28/2021 Active Intelence 200 MG Tablet twice a day Oral twice a day 03/28/2021 Active Emtriva 200 MG Capsule once a day Oral once a day 03/28/2021 Active Prezista 600 MG Tablet twice a day Oral twice a day 03/28/2021 Active Neurontin 800 MG Tablet three times a da y Oral three times a day 03/28/2021 Active Famotidine 40 MG Tablet once a day Oral once a day 03/28/2021 Active Percocet 5-325 MG Tablet three times a d ay Oral three times a day 12/06/2020 Active Social History Social History Additional Details Category Social Info Options Details Migrated Social History Migrated Social History not sexually active, Oriented about HIV disclosure, Oriented about risk reduction, Oriented about safe sex practices Encounters Encounter Location Date Provider [facility] [address] [place] [address] 04/09/2025 Provider Migration Plan Of Treatment No Information Progress Notes * CHRISTA AMEZQUITA Farhana NDOB:1 (55 yo F)Acc No.[id number]:04/09/2025 Patient: Lance BOODOFarhana N :1970 A ge:54 Y S ex:Female Phone: Address[address] [place], [address] Subjective: * Chief Complaints: * E MR-Trevon * Social History: M igrated Social History: M igrated Social History: not sexually active, O riented about HIV disclosure, O riented about risk reduction, O riented about safe sex practices. * Medications: T akingPercocet 5-325 MG Tablet three times a day Oral three times a day Prezista 600 MG Tablet twice a day Oral twice a day Isentress 400 MG Tablet twice a day Oral twice a day Metoprolol Tartrate 100 MG Tablet twice a day Oral twice a day Cefadroxil 1 GM Tablet twice a day Oral twice a day Emtriva 200 MG Capsule once a day Oral once a day Bactrim DS 800-160 MG Tablet twice a day Oral twice a day Famotidine 40 MG Tablet once a day Oral once a day Losartan Potassium-HCTZ 100-12.5 MG Tablet once a day Oral once a day Intelence 200 MG Tablet twice a day Oral twice a day Norvir 100 MG Tablet twice a day Oral twice a day Tricor 145 MG Tablet once a day Oral once a day Percocet 5-325 MG Tablet three times a day Oral three times a day Innmlksyak-VJSJ-Otuhhiga 50-325-40 MG Tablet 1 every 4 - 6 hours as needed Oral 1 every 4 - 6 hours as needed Neurontin 800 MG Tablet three times a day Oral three times a day Taking Percocet 5-325 MG Tablet three times a day Oral three times a day Taking Prezista 600 MG Tablet twice a day Oral twice a day Taking Isentress 400 MG Tablet twice a day Oral twice a day Taking Metoprolol Tartrate 100 MG Tablet twice a day Oral twice a day Taking Cefadroxil 1 GM Tablet twice a day Oral twice a day Taking Emtriva 200 MG Capsule once a day Oral once a day Taking Bactrim DS 800-160 MG Tablet twice a day Oral twice a day Taking Famotidine 40 MG Tablet once a day Oral once a day Taking Losartan Potassium-HCTZ 100-12.5 MG Tablet once a day Oral once a day Taking Intelence 200 MG Tablet twice a day Oral twice a day Taking Norvir 100 MG Tablet twice a day Oral twice a day Taking Tricor 145 MG Tablet once a day Oral once a day Taking Percocet 5-325 MG Tablet three times a day Oral three times a day Taking Pyadzehhqy-RGTX-Elbnwcbh 50-325-40 MG Tablet 1 every 4 - 6 hours as needed Oral 1 every 4 - 6 hours as needed Taking Neurontin 800 MG Tablet three times a day Oral three times a day * * Date:
--- OUTSIDE RECORDS SUMMARY | 2025-10-12 19:02 | XMS_ITS | Patient Health Record ---
Author Organization [facility] a Address [address] [place] [address] Care Team Providers Care Rn Operating Room Name Role Phone Migration, Provider Unavailable Unavailable [...] Oral three times a day 03/28/2021 Active Wbodytkapf-LCWN-Dpqgmvhj 50-325-40 MG Tablet 1 every 4 - [...] Risk Notes Problem Benign neoplasm of uterus (49600115) Other benign neoplasm of uterus, unspecified (D26.9) Active confirmed Problem Mixed hyperlipidemia (926351964) Mixed hyperlipidemia (E78.2) Active confirmed Problem Chronic pain syndrome (434784299) Chronic pain syndrome (G89.4) Active confirmed Problem Essential hypertension (98958474) Essential (primary) hypertension (I10) Active confirmed Problem Calculus of kidney (33469077) Calculus of kidney (N20.0) Active confirmed Problem Asymptomatic human immunodeficiency virus infection (35462049) Asymptomatic human immunodeficiency virus [HIV] infection status (Z21) Active confirmed Problem Other specified procedure converted to open procedure (Z53.39) Active confirmed Encounters Encounter Location Date Provider Diagnosis [facility] [address] [place] [address] 04/08/2025 Provider Migration [facility] [address] [place] [address] 04/09/2025 Provider Migration Plan Of Treatment No Information Insurance Providers Payer Name Payer Address Payer Phone Subscriber Number Group Number Insured Name Patient Relationship to Insured Coverage Start Date Coverage End Date [employer] [address] [place] [address] [id number] Farhana Coronado Self - patient is the insured 9 No Insurance [address] [place] [address] [id number] Farhana Coronado Self - patient is the insured 7
== END 2025-10-12 17:56 | disposition home or self-care (01) ==
LOC: HO.HHCLNP 17:55
PROVIDERS: Visit Provider General Practice
DX: Z79.891 Long term (current) use of opiate analgesic (principal); Z79.899 Other long term (current) drug therapy
CPT/HCPCS: 80307